=== PATIENT | female | born 1940 | race Caucasian/White ===

== ENCOUNTER 2019-04-05 13:07 | Inpatient (IN) ==
[2019-04-05 14:07] LABS: Bilirubin,Urine Small (Negative); Blood,Urine Negative (Negative); Clarity,Urine Clear (Clear); Color,Urine Yellow (Yellow); Glucose,Urine (UA) Normal (Normal); Ketones,Urine Trace mg/dL (Negative); Leukocyte Esterase,Urine Moderate (Negative); Nitrite,Urine Negative (Negative); PH,Urine 6.5 pH Units (5.0-8.0); Protein,Urine 30 mg/dL (Neg-Trace); Specific Gravity,Urine 1.026 (1.010-1.025); Urobilinogen,Urine Normal (Normal)
[2019-04-05 14:09] LABS: Bacteria,Urine Few per hpf (None-Few); Hyaline Casts,Urine None Seen per lpf (None-Few); Squamous Epithelial Cell,Urine Many per lpf (None-Few)
[2019-04-05 14:12] LABS: Amphetamine Screen,Urine Negative ng/mL (Cutoff=1000); Barbiturate Screen,Urine Negative ng/mL (Cutoff=200); Benzodiazepines Screen,Urine Negative ng/mL (Cutoff=200); Cannabinoid Screen,Urine Negative ng/mL (Cutoff = 50); Cocaine Screen,Urine Negative ng/mL (Cutoff= 300); Opiate Screen,Urine Negative ng/mL (Cutoff=300); Phencyclidine Screen,Urine Negative ng/mL (Cutoff=25)
--- NOTE | 2019-04-05 14:12 | Emergency Department Note ---
Disposition Clinical Impression: Delirium, Visual hallucinations, Atrial fibrillation with RVR Disposition: Admitted As Inpatient Condition: Good Referrals: Maritza uQintana, [employer] OPERATOR [Primary Care Provider] - Forms: ED Satisfaction Letter Time of Disposition: 16:36 General Adult HPI - General Chief complaint: ED Psychiatric Symptoms Stated complaint: Hallucinations Time Seen by Provider: 04/05/19 13:15 Source: patient Limitations: no limitations Nursing Notes Reviewed: Yes Vital Signs Reviewed: Yes - History of Present Illness HPI Narrative: Female patient visiting to the emergency department complaining of hallucinations. She does have history of Parkinson's. There is been no change in her medication. She also is reporting several falls at home. She denies any falling to strike her head she is just been falling into things recently. She denies any loss of consciousness. She states that she has been seeing people in the field by her house. She asked her nephew they were actually there and he said they were not. She is aware that they are not real. Concern for possible UTI this time. Denies any shortness of breath or chest pain is out of the ordinary she did however fall and struck her chest she states that she had a small area that was sore but is not present at this time. Patient does report some dysuria. She reports that recently she had a fall onto the counter and she had bilateral biceps soreness which was treat with meloxicam. That did not make it better so then she was treated with steroids. The steroid course was over s everal days ago. She states that the pain is gone at this time. Pain Scale: 0 - Related Data Home Medications Medication Instructions Recorded Confirmed Carbidopa/Levodopa ER 50/200 1 tab PO HS 09/15/17 09/15/17 [Sinemet ER 50-200 Tab] Pramipexole [Mirapex] 0.5 mg PO BID 09/15/17 09/15/17 Rivastigmine Tartrate (oral) 1.5 mg PO BID 04/05/19 04/05/19 [Exelon] Selegiline HCl [Eldepryl] 5 mg PO BID 04/05/19 04/05/19 Sertraline [Zoloft] 50 mg PO DAILY 04/05/19 04/05/19 clonazePAM [Klonopin] 0.5 mg PO PRN PRN 04/05/19 04/05/19 Previous Rx's Medication Instructions Recorded Aspirin 81 mg PO DAILY #30 tab.chew 09/16/17 Allergies Allergy/AdvReac Type Severity Reaction Status Date / Time nitrofurantoin Allergy Rash Verified 08/28/18 14:46 All systems ED: reviewed and negative except as stated. Review of Systems: As Per HPI Constitutional: Denies: fever, chills Cardiovascular: Reports: chest pain (small area to sternum that she states is sore. Not having pain at this time.) Respiratory: Denies: cough, dyspnea Gastrointestinal: Denies: abdominal pain, nausea, vomiting, diarrhea Genitourinary: Reports: dysuria. Denies: urgency, frequency, hematuria Musculoskeletal: Denies: back pain, neck pain Integumentary: Denies: rash Neurological: Reports: other (has a " squishy feeling" in her head). Denies: headache Psychiatric: Reports: visual hallucinations. Denies: suicidal thoughts, homicidal thoughts, auditory hallucinations Past Medical History - Past Medical History Attestation: Yes The following information was validated with the patient. Source: patient Medical history: Reports: other Psychiatric history: Reports: no psych history - Social History Smoking Status: Never smoker Smokeless Tobacco Status: No Alcohol use: Reports: none Drug use: Reports: none Physical Exam - General Limitations: no limitations General appearance: alert, in no apparent distress - Head Head exam: atraumatic, normocephalic, normal inspection - Eye Eye exam: Present: normal appearance, PERRL, EOMI - ENT ENT exam: normal exam, normal oropharynx, mucous membranes moist - Neck Neck exam: Present: normal inspection, full ROM, trachea midline - Chest Chest inspection: Present: normal inspection, symmetric chest wall rise. Absent: tenderness (no tenderness to palpation of chest. No signs of trauma or ecchymosis to chest wall) - Respiratory Respiratory exam: Present: normal lung sounds bilaterally. Absent: respiratory distress, accessory muscle use - Cardiovascular Cardiovascular exam: Present: regular rate, normal rhythm, normal heart sounds - Abdominal Exam Abdominal exam: Present: soft, Non-Tender. Absent: tenderness, distention, guarding, rebound, rigidity, organomegaly, Bustillo's sign, Rovsing's sign, tenderness at McBurney's Point - Extremities Exam Extremities exam: Present: normal inspection, full ROM, normal capillary refill, other (No pain to palpation of all 4 extremities. Gross motor intact. Weakness in the lower extremities however. She is able to stand but is weak on her feet.). Absent: tenderness, pedal edema - Back Exam Back exam: Present: normal inspection, full ROM, other (No step-offs deformities or pain to palpation of midline cervical thoracic or lumbar spine.). Absent: tenderness - Neurological Exam Neurological exam: Present: alert, oriented X3, CN II-XII intact - Psychiatric Psychiatric exam: Present: normal affect, normal mood. Absent: homicidal ideation, suicidal ideation - Skin Skin exam: Present: warm, dry, intact, normal color. Absent: rash, cyanosis, diaphoresis Course Course Narrative: Female patient appears well resting in bed. No signs of trauma noted to her body. Sternum is not tender to palpation. She states that she is not short of breath currently. She does report that she did have some pain to palpation of her sternum previously but is surprised that is not hurting at this time. She denies any overt chest pain however. She states that she is not having hallucinations at this time. She does report that she knows that they were not there but she could still see the people outside. Complains of some mild burning on urination. We will get a CT of her hepatic basic lab workup and a UA. Patient does have Parkinson's. I do not notice a tremor at this time. There is no cogwheel rigidity. - Reevaluation(s) Reevaluation #1: Alerted by nursing staff that the patient is now in A. fib. She is A. fib RVR at a rate of 160s. We will provide patient with a liter of fluid and will give her 10 mg of Cardizem at this time. Patient is mentating appropriately with a stable blood pressure. No history of A. fib. Patient with a stable head CT so we will provide her with aspirin at this time. We will start patient on a Cardizem drip that she did not respond to the initial Cardizem bolus and fluid challenge. Time: 16:09 Vital Signs Temperature 98.1 F 04/05/19 13:09 Pulse Rate 91 04/05/19 13:09 Respiratory Rate 16 04/05/19 13:09 Blood Pressure 113/56 04/05/19 13:09 O2 Sat by Pulse Oximetry 94 04/05/19 13:09 Temperature 98.1 F 04/05/19 13:09 Pulse Rate 121 04/05/19 16:29 Respiratory Rate 20 04/05/19 16:29 Blood Pressure 178/82 04/05/19 16:00 O2 Sat by Pulse Oximetry 95 04/05/19 16:29 Oxygen Delivery Oxygen Delivery Room Air Medical Decision Making - Medical Records Medical records reviewed: Yes I reviewed the patient's medical records. - Lab Data Lab results reviewed: Yes I reviewed the patient's lab results. Result diagrams: 04/05/19 13:55 04/05/19 13:55 Lab Results 04/05/19 04/05/19 04/05/19 Range/Units 13:45 13:45 13:55 WBC 11.3 H (4.3-11.1) K/mcL RBC 4.10 (3.82-4.97) M/mcL Hgb 12.8 (11.5-15.4) g/dL Hct 38.9 (35.3-44.9) % MCV 94.9 (83.0-100.0) fL MCH 31.2 (28.0-33.3) pg MCHC 32.9 (31.6-35.5) g/dL RDW 13.3 (11.5-14.5) % Plt Count 266 (140-400) K/mcL MPV 9.4 (9.4-12.4) fL Immature Gran % 0.4 (0-4) % Seg Neutrophils % 75.9 % Lymphocytes % 14.7 % Monocytes % 6.1 % Eosinophils % 2.6 % Basophils % 0.3 % Neutrophils # 8.6 (1.6-8.9) K/mcL Lymphocytes # 1.7 (0.6-4.6) K/mcL Monocytes # 0.7 (0.0-1.3) K/mcL Eosinophils # 0.3 (0.0-0.6) K/mcL Basophils # 0.0 (0.0-0.2) K/mcL Sodium (136-145) mEq/L Potassium (3.5-5.1) mEq/L Chloride (98-107) mEq/L Carbon Dioxide (23-29) mEq/L BUN (8-23) mg/dL Creatinine (0.60-1.20) mg/dL Est GFR ( Amer) (> 60) Est GFR (Non-Af Amer) (> 60) BUN/Creatinine Ratio (6-26) Glucose (70-105) mg/dL Calculated Osmolality (280-300) Calcium (8.6-10.3) mg/dL Total Bilirubin (0.3-1.0) mg/dL Direct Bilirubin (0.0-0.2) mg/dL Indirect Bilirubin (0.0-1.2) mg/dL AST (13-39) Units/L ALT (7-52) Units/L Alkaline Phosphatase (34-104) Units/L Troponin I (< 0.04) ng/mL Serum Total Protein (6.4-8.9) g/dL Albumin (3.5-5.7) g/dL Globulin (2.4-3.5) g/dL Albumin/Globulin Ratio (1.1-2.2) Ur Specimen Adequacy See below A Urine Color Yellow (Yellow) Urine Clarity Clear (Clear) Urine pH 6.5 (5.0-8.0) pH Units Ur Specific [place] 1.026 H (1.010-1.025) Urine Protein 30 H (Neg-Trace) mg/dL Urine Glucose (UA) Normal (Normal) mg/dL Urine Ketones Trace H (Negative) mg/dL Urine Blood Negative (Negative) Urine Nitrite Negative (Negative) Urine Bilirubin Small H (Negative) Urine Urobilinogen Normal (Normal) mg/dL Ur Leukocyte Esterase Moderate H (Negative) Urine Microscopic WBC 5-15 H (0-3) per hpf Ur Squamous Epith Cells Many H (None-Few) per lpf Ur Transition Epith Cell Few (None-Few) per hpf Urine Bacteria Few (None-Few) per hpf Hyaline Casts None Seen (None-Few) per lpf Salicylates (15.0-30.0) mg/dL Urine Opiates Screen Negative (Byftmc=392) ng/mL Acetaminophen (10-20) mcg/mL Ur Barbiturates Screen Negative (Fcdmmg=256) ng/mL Ur Phencyclidine Scrn Negative (Cutoff=25) ng/mL Ur Amphetamines Screen Negative (Mnbdqe=3446) ng/mL U Benzodiazepines Scrn Negative (Xzbtvb=911) ng/mL Urine Cocaine Screen Negative (Cutoff= 300) ng/mL U Marijuana (THC) Screen Negative (Cutoff = 50) ng/mL Ur Drug Screen Interp See Below Ethyl Alcohol (Less than 10) mg/dL 04/05/19 04/05/19 Range/Units 13:55 13:55 WBC (4.3-11.1) K/mcL RBC (3.82-4.97) M/mcL Hgb (11.5-15.4) g/dL Hct (35.3-44.9) % MCV (83.0-100.0) fL MCH (28.0-33.3) pg MCHC (31.6-35.5) g/dL RDW (11.5-14.5) % Plt Count (140-400) K/mcL MPV (9.4-12.4) fL Immature Gran % (0-4) % Seg Neutrophils % % Lymphocytes % % Monocytes % % Eosinophils % % Basophils % % Neutrophils # (1.6-8.9) K/mcL Lymphocytes # (0.6-4.6) K/mcL Monocytes # (0.0-1.3) K/mcL Eosinophils # (0.0-0.6) K/mcL Basophils # (0.0-0.2) K/mcL Sodium 138 (136-145) mEq/L Potassium 3.7 (3.5-5.1) mEq/L Chloride 100 (98-107) mEq/L Carbon Dioxide 28 (23-29) mEq/L BUN 14 (8-23) mg/dL Creatinine 0.89 (0.60-1.20) mg/dL Est GFR ( Amer) > 60 (> 60) Est GFR (Non-Af Amer) > 60 (> 60) BUN/Creatinine Ratio 16 (6-26) Glucose 104 (70-105) mg/dL Calculated Osmolality 287 (280-300) Calcium 9.4 (8.6-10.3) mg/dL Total Bilirubin 0.7 (0.3-1.0) mg/dL Direct Bilirubin 0.1 (0.0-0.2) mg/dL Indirect Bilirubin 0.6 (0.0-1.2) mg/dL AST 13 (13-39) Units/L ALT 3 L (7-52) Units/L Alkaline Phosphatase 79 (34-104) Units/L Troponin I 0.03 (< 0.04) ng/mL Serum Total Protein 6.8 (6.4-8.9) g/dL Albumin 4.0 (3.5-5.7) g/dL Globulin 2.8 (2.4-3.5) g/dL Albumin/Globulin Ratio 1.4 (1.1-2.2) Ur Specimen Adequacy Urine Color (Yellow) Urine Clarity (Clear) Urine pH (5.0-8.0) pH Units Ur Specific [place] (1.010-1.025) Urine Protein (Neg-Trace) mg/dL Urine Glucose (UA) (Normal) mg/dL Urine Ketones (Negative) mg/dL Urine Blood (Negative) Urine Nitrite (Negative) Urine Bilirubin (Negative) Urine Urobilinogen (Normal) mg/dL Ur Leukocyte Esterase (Negative) Urine Microscopic WBC (0-3) per hpf Ur Squamous Epith Cells (None-Few) per lpf Ur Transition Epith Cell (None-Few) per hpf Urine Bacteria (None-Few) per hpf Hyaline Casts (None-Few) per lpf Salicylates < 2.5 L (15.0-30.0) mg/dL Urine Opiates Screen (Gxwrhj=938) ng/mL Acetaminophen < 10 L (10-20) mcg/mL Ur Barbiturates Screen (Rkxqbe=025) ng/mL Ur Phencyclidine Scrn (Cutoff=25) ng/mL Ur Amphetamines Screen (Gvbynn=5132) ng/mL U Benzodiazepines Scrn (Rvllah=261) ng/mL Urine Cocaine Screen (Cutoff= 300) ng/mL U Marijuana (THC) Screen (Cutoff = 50) ng/mL Ur Drug Screen Interp Ethyl Alcohol < 10 (Less than 10) mg/dL - Radiology Data Radiology results reviewed: Yes I reviewed the patient's radiology results. Chest X-Ray 04/05/19 13:41 IMPRESSION: 1. Congestive heart failure 2. Hiatal hernia D/ / Tae Sanchez MD / Tae Sanchez MD Interpreting Provider: Tae Sanchez MD Head CT 04/05/19 13:41 IMPRESSION: No acute intracranial abnormality. D/ / Tyesha Rivera / Tyesha Rivera Interpreting Provider: Tyesha Rivera - EKG Data EKG #1 EKG attestation: Yes I reviewed and interpreted this EKG. EKG results narrative: Normal sinus rhythm at a rate 82. AZ intervals 171. QRS duration is 85. QT is 357. QTC is 417. No signs of acute ischemia. Good R-wave progression. No signs of WPW or Brugada. No significant change from previous EKG dated 09/14/2017. EKG #2 EKG attestation: Yes I reviewed and interpreted this EKG. EKG results narrative: EKG 1556 is now A. fib with RVR. Ventricular rate of 157. AZ interval was not measured QRS duration is 85. QT is 3-91. QTC is 471. Patient was previously in a sinus rhythm. This is a new finding for the patient.
[2019-04-05 14:24] LABS: Basophils % 0.3 %; Eosinophils # 0.3 K/mcL (0.0-0.6); Eosinophils % 2.6 %; Hematocrit 38.9 % (35.3-44.9); Hemoglobin 12.8 g/dL (11.5-15.4); Immature Granulocytes % 0.4 % (0-4); Lymphocytes # 1.7 K/mcL (0.6-4.6); Lymphocytes % 14.7 %; Mean Corpuscular HGB Conc 32.9 g/dL (31.6-35.5); Mean Corpuscular Hemoglobin 31.2 pg (28.0-33.3); Mean Corpuscular Volume 94.9 fL (83.0-100.0); Mean Platelet Volume 9.4 fL (9.4-12.4); Monocytes # 0.7 K/mcL (0.0-1.3); Monocytes % 6.1 %; Neutrophils # 8.6 K/mcL (1.6-8.9); Platelet Count 266 K/mcL (140-400); Red Cell Distribution Width 13.3 % (11.5-14.5); Segmented Neutrophils % 75.9 %; White Blood Count 11.3 K/mcL (4.3-11.1)
[2019-04-05 14:27] LABS: Transitional Epi Cells,Urine Few per hpf (None-Few)
--- NOTE | 2019-04-05 14:34 | Emergency Department Note ---
Disposition Clinical Impression: Delirium, Visual hallucinations Disposition: Admitted As Inpatient Forms: ED Satisfaction Letter Time of Disposition: 14:38 General Adult HPI - General Chief complaint: ED Psychiatric Symptoms Stated complaint: Hallucinations Time Seen by Provider: 04/05/19 13:15 Source: patient Limitations: no limitations Nursing Notes Reviewed: Yes Vital Signs Reviewed: Yes - History of Present Illness HPI Narrative: Attestation note: Patient was seen with the emergency medicine resident/nurse practitioner/physician virtual office assistant/transitional resident/medical student: Dr. Smita Mcintosh I have personally performed a face to face evaluation on this patient. I have reviewed and agree with history and physical examination patient management and disposition. I was present for the significant portions of the performance and interpretation of procedures and EKGs. Briefly the salient points of the case are as follows: 79-year-old female from a senior living facility. Patient is having visual hallucinations which is new and different they are not threatening or commanding. Patient is otherwise awake alert and responsive. No new medication changes afebrile with stable vital signs patient be worked up for delirium. Anticipated disposition is admission. Disposition pending. Pain Scale: 0 - Related Data Home Medications Medication Instructions Recorded Confirmed Calcium Carb, Citrate/Vit D3 1 tab PO DAILY 09/15/17 09/15/17 [Calcium + D3 ER Tablet] Carbidopa/Levodopa 25/100 [Sinemet 2 each PO QID 09/15/17 09/15/17 25/100] Carbidopa/Levodopa ER 50/200 1 tab PO HS 09/15/17 09/15/17 [Sinemet ER 50-200 Tab] Cholecalciferol (D-3) [Vitamin D] 2,000 unit PO DAILY 09/15/17 09/15/17 Entacapone [Comtan] 200 mg PO QID 09/15/17 09/15/17 Ketoconazole 2% CRM [Nizoral Cream] 1 appl TP DAILY 09/15/17 09/15/17 Lisinopril-HCTZ 10-12.5 [Prinzide 1 each PO DAILY 09/15/17 09/15/17 10-12.5] Omega3/Dha/Epa/Fish Oil/Vit D3 1 each PO DAILY 09/15/17 09/15/17 [Fish Oil + Vitamin D-3 Softgel] Pramipexole [Mirapex] 0.5 mg PO BID 09/15/17 09/15/17 Rasagiline Mesylate [Azilect] 1 mg PO DAILY 09/15/17 09/15/17 Previous Rx's Medication Instructions Recorded Aspirin 81 mg PO DAILY #30 tab.chew 09/16/17 Omeprazole [PriLOSEC] 40 mg PO DAILY #30 cap 09/16/17 Cephalexin [Keflex] 500 mg PO TID #21 capsule 08/28/18 Phenazopyridine HCl [Pyridium] 200 mg PO TID #6 tab 08/28/18 Allergies Allergy/AdvReac Type Severity Reaction Status Date / Time nitrofurantoin Allergy Rash Verified 08/28/18 14:46 Constitutional: Denies: fever, chills Cardiovascular: Reports: chest pain (small area to sternum that she states is sore. Not having pain at this time.) Respiratory: Denies: cough, dyspnea Gastrointestinal: Denies: abdominal pain, nausea, vomiting, diarrhea Genitourinary: Reports: dysuria. Denies: urgency, frequency, hematuria Musculoskeletal: Denies: back pain, neck pain Integumentary: Denies: rash Neurological: Reports: other (has a " squishy feeling" in her head). Denies: headache Psychiatric: Reports: visual hallucinations. Denies: suicidal thoughts, homic idal thoughts, auditory hallucinations Past Medical History - Past Medical History Medical history: Reports: other Psychiatric history: Reports: no psych history - Social History Smoking Status: Never smoker Smokeless Tobacco Status: No Alcohol use: Reports: none Drug use: Reports: none Physical Exam - General Limitations: no limitations General appearance: alert, in no apparent distress Course Vital Signs Temperature 98.1 F 04/05/19 13:09 Pulse Rate 91 04/05/19 13:09 Respiratory Rate 16 04/05/19 13:09 Blood Pressure 113/56 04/05/19 13:09 O2 Sat by Pulse Oximetry 94 04/05/19 13:09 Temperature 98.1 F 04/05/19 13:09 Pulse Rate 91 04/05/19 13:09 Respiratory Rate 16 04/05/19 13:09 Blood Pressure 113/56 04/05/19 13:09 O2 Sat by Pulse Oximetry 94 04/05/19 13:09 Oxygen Delivery Oxygen Delivery Room Air Medical Decision Making - Lab Data Result diagrams: 04/05/19 13:55 Lab Results 04/05/19 04/05/19 04/05/19 Range/Units 13:45 13:45 13:55 WBC 11.3 H (4.3-11.1) K/mcL RBC 4.10 (3.82-4.97) M/mcL Hgb 12.8 (11.5-15.4) g/dL Hct 38.9 (35.3-44.9) % MCV 94.9 (83.0-100.0) fL MCH 31.2 (28.0-33.3) pg MCHC 32.9 (31.6-35.5) g/dL RDW 13.3 (11.5-14.5) % Plt Count 266 (140-400) K/mcL MPV 9.4 (9.4-12.4) fL Immature Gran % 0.4 (0-4) % Seg Neutrophils % 75.9 % Lymphocytes % 14.7 % Monocytes % 6.1 % Eosinophils % 2.6 % Basophils % 0.3 % Neutrophils # 8.6 (1.6-8.9) K/mcL Lymphocytes # 1.7 (0.6-4.6) K/mcL Monocytes # 0.7 (0.0-1.3) K/mcL Eosinophils # 0.3 (0.0-0.6) K/mcL Basophils # 0.0 (0.0-0.2) K/mcL Urine Color Yellow (Yellow) Urine Clarity Clear (Clear) Urine pH 6.5 (5.0-8.0) pH Units Ur Specific [place] 1.026 H (1.010-1.025) Urine Protein 30 H (Neg-Trace) mg/dL Urine Glucose (UA) Normal (Normal) mg/dL Urine Ketones Trace H (Negative) mg/dL Urine Blood Negative (Negative) Urine Nitrite Negative (Negative) Urine Bilirubin Small H (Negative) Urine Urobilinogen Normal (Normal) mg/dL Ur Leukocyte Esterase Moderate H (Negative) Urine Microscopic WBC 5-15 H (0-3) per hpf Ur Squamous Epith Cells Many H (None-Few) per lpf Ur Transition Epith Cell Few (None-Few) per hpf Urine Bacteria Few (None-Few) per hpf Hyaline Casts None Seen (None-Few) per lpf Urine Opiates Screen Negative (Aohcdy=195) ng/mL Ur Barbiturates Screen Negative (Jtpuog=599) ng/mL Ur Phencyclidine Scrn Negative (Cutoff=25) ng/mL Ur Amphetamines Screen Negative (Watiuu=6717) ng/mL U Benzodiazepines Scrn Negative (Jpzrwh=902) ng/mL Urine Cocaine Screen Negative (Cutoff= 300) ng/mL U Marijuana (THC) Screen Negative (Cutoff = 50) ng/mL Ur Drug Screen Interp See Below
[2019-04-05 14:41] LABS: Acetaminophen < 10 mcg/mL (10-20); BUN/Creatinine Ratio 16 (6-26); Blood Urea Nitrogen 14 mg/dL (8-23); Calcium 9.4 mg/dL (8.6-10.3); Carbon Dioxide 28 mEq/L (23-29); Chloride 100 mEq/L (98-107); Ethanol < 10 mg/dL (Less than 10); Glucose 104 mg/dL (70-105); Osmolality,Calculated 287 (280-300); Potassium 3.7 mEq/L (3.5-5.1); Salicylate < 2.5 mg/dL (15.0-30.0); Sodium 138 mEq/L (136-145); eGFR For African Americans > 60 (> 60); eGFR For Non-African Americans > 60 (> 60)
[2019-04-05 14:42] LABS: Albumin/Globulin Ratio 1.4 (1.1-2.2); Bilirubin,Direct 0.1 mg/dL (0.0-0.2); Bilirubin,Indirect 0.6 mg/dL (0.0-1.2); Bilirubin,Total 0.7 mg/dL (0.3-1.0); Globulin 2.8 g/dL (2.4-3.5); Total Protein 6.8 g/dL (6.4-8.9); Troponin I 0.03 ng/mL (< 0.04)
[2019-04-05] MEDS ORDERED: 0.9 % Sodium Chloride 1,000 ML ONE (16:00)
[2019-04-05] MEDS ORDERED: 0.9 % Sodium Chloride 1,000 ML IVC ONE (16:02)
[2019-04-05] MEDS ORDERED: Aspirin 325 MG TABLET PO ONE (16:06)
[2019-04-05 17:17] LABS: Troponin I 0.03 ng/mL (< 0.04)
[2019-04-05] MEDS ORDERED: Furosemide 40 MG/4 ML VIAL IVP STA (17:20)
[2019-04-05] MEDS ORDERED: Nitroglycerin 0.4 MG TAB.SUBL SL PRN (17:20)
[2019-04-05] MEDS ORDERED: Naloxone 0.4 MG/ML INJ IVP PRN (17:23)
[2019-04-05] MEDS ORDERED: clonazePAM 0.5 MG TABLET PO PRN (17:31)
--- NOTE | 2019-04-05 17:39 | Internal Med History&Physical ---
Date of Encounter: 04/05/19 Time of Encounter: 17:34 Internal Medicine - H&P: HPI History of present illness: Ms. Tavera is a 79 year old female with history of Parkinson's Disease presented to ED for visual hallucinations. Onset was one day ago. Patient is aware these are hallucinations. She denies any auditory hallucinations, SI/HI, depression, anxiety. She is on several medications for Parkinson's disease but has never had this side effect from them. In the ED she had basic workup with basic labs negative as well as a negative CT scan. She was noted to have tachycardic episode on telemetry and went into afib with RVR. She was started on a Cardizem drip. O2 saturations at bedside was 90-91% on room air. Past Med Surg Social Fam HX - Past Medical History Medical history: other Additional medical history: parkinson's Psychiatric history: no psych history - Social History Smoking Status: Never smoker Smokeless Tobacco Status: No Alcohol use: none Drug use: none - Family History Father Living Status: Hx Family Cardiac Disorders: Yes Internal Medicine - H&P: Meds Carbidopa/Levodopa ER 50/200 [Sinemet ER 50-200 Tab] 3 tab PO QID 09/15/17 [History] Pramipexole [Mirapex] 0.5 mg PO TID 09/15/17 [History] Aspirin 81 mg PO DAILY #30 tab.chew 09/16/17 [Rx] Rivastigmine Tartrate (oral) [Exelon] 1.5 mg PO BID 04/05/19 [History] Selegiline HCl [Eldepryl] 5 mg PO BID 04/05/19 [History] Sertraline [Zoloft] 50 mg PO DAILY 04/05/19 [History] clonazePAM [Klonopin] 0.5 mg PO PRN PRN 04/05/19 [History] Allergy/AdvReac Type Severity Reaction Status Date / Time nitrofurantoin Allergy Rash Verified 08/28/18 14:46 All Systems PM: A 10-system review of systems was performed and is negative for pertinent findings except as documented above in the HPI. - Constitutional Constitutional: no chills, no fever(s), no night sweats - EENT Eyes: no change in vision, no discharge, no pain, no photophobia Ears: no ear discharge, no ear pain, no tinnitus Nose, mouth and throat: no dysphagia, no nasal discharge, no neck pain, no sore throat - Cardiovascular Cardiovascular ROS IM: no chest pain, no diaphoresis, no dyspnea, no lightheadedness, no palpitations, no syncope - Respiratory Respiratory: no cough, no dyspnea (occasional ), no wheezing, no excessive phlegm production - Gastrointestinal Gastrointestinal: no abdominal pain, no diarrhea, no hematemesis, no hematochezia, no melena, no nausea, no vomiting - Genitourinary Genitourinary: no change in urinary stream, no dysuria, no flank pain, no hematuria - Musculoskeletal Musculoskeletal ROS IM: no numbness, no tingling - Integumentary Integumentary IM: no rash, no unusual bruising - Neurological Neurological ROS: no confusion, no convulsions, no focal weakness, no numbness, no tingling, no tremor(s) - Psychiatric Psychiatric: visual hallucinations - Hematologic/Lymphatic Hematologic/Lymphatic: no easy bruising - Constitutional Vitals: Temp Pulse Resp BP Pulse Ox 98.1 F 146 16 114/86 99 04/05/19 13:09 04/05/19 17:23 04/05/19 17:23 04/05/19 17:23 04/05/19 17:23 General appearance: Present: A&O X 3, pleasant Exam: . - Head Head exam: Present: atraumatic, normocephalic - Eye Eye exam: Present: PERRL, conjuntiva pink, sclera anicteric Pupils: Present: PERRL - ENT ENT exam: Present: mucous membranes dry - Neck Neck exam general surgery: Present: full ROM, supple, trachea midline. Absent: lymphadenopathy, thyromegaly - Respiratory Respiratory exam: Present: rales (Coarse throughout all lung anne). Absent: accessory muscle use, rhonchi, wheezes - Cardiovascular Cardiovascular exam: Present: +S1, +S2, tachycardia. Absent: diastolic murmur, gallop, rubs, systolic murmur - GI/Abdominal GI/Abdominal exam: Present: normal bowel sounds, soft, no peritoneal signs. Absent: distended, tenderness - Extremities Exam Extremities exam: Present: warm, radial pulses palpable and symmetrical. Absent: calf tenderness, cyanotic, pedal edema - Neurological Exam Neurological exam: Present: CN II-XII intact, oriented X3, no focal deficits. Absent: pronater drift, facial droop, speech deficit - Skin Skin exam: Present: dry, intact Internal Med - H&P Results - Labs CBC & Chem 7: 04/05/19 13:55 04/05/19 13:55 Labs: Short CBC 04/05/19 Range/Units 13:55 WBC 11.3 H (4.3-11.1) K/mcL Hgb 12.8 (11.5-15.4) g/dL Hct 38.9 (35.3-44.9) % Plt Count 266 (140-400) K/mcL Neutrophils # 8.6 (1.6-8.9) K/mcL BMP 04/05/19 13:55 Sodium 138 Potassium 3.7 Chloride 100 Carbon Dioxide 28 BUN 14 Creatinine 0.89 Glucose 104 Calcium 9.4 Cardiac Enzymes 04/05/19 04/05/19 Range/Units 13:55 16:30 Troponin I 0.03 0.03 (< 0.04) ng/mL Liver Function 04/05/19 Range/Units 13:55 Total Bilirubin 0.7 (0.3-1.0) mg/dL Direct Bilirubin 0.1 (0.0-0.2) mg/dL AST 13 (13-39) Units/L ALT 3 L (7-52) Units/L Alkaline Phosphatase 79 (34-104) Units/L Albumin 4.0 (3.5-5.7) g/dL Urine 04/05/19 Range/Units 13:45 Urine Color Yellow (Yellow) Urine Clarity Clear (Clear) Urine pH 6.5 (5.0-8.0) pH Units Ur Specific [place] 1.026 H (1.010-1.025) Urine Protein 30 H (Neg-Trace) mg/dL Urine Glucose (UA) Normal (Normal) mg/dL - Impressions ITS Impressions Chest X-Ray 04/05/19 13:41 IMPRESSION: 1. Congestive heart failure 2. Hiatal hernia D/ / Tae Sanchez MD / Tae Sanchez MD Interpreting Provider: Tae Sanchez MD Head CT 04/05/19 13:41 IMPRESSION: No acute intracranial abnormality. D/ / Tyesha Rivera / Tyesha Rivera Interpreting Provider: Tyesha Rivera - Assessment and Plan (1) Visual hallucinations Current Visit: Yes Status: Acute Assessment and plan: She presented with the [facility] complaint of visual hallucinations. She is alert and oriented, and aware of her situation. She does not appear confused or combative and she is completely conscious. This is likely related to Parkinson's disease, and medication side effects. All of which can cause hallucinations. These medications should not be abruptly withdrawn and so should carefully be resumed. (2) Atrial fibrillation with RVR Current Visit: Yes Status: Acute Assessment and plan: Patient seen to go into afib with RVR on telemetry in the ED. She was initially sinus rhythm on first EKG. She denies any chest pain, and states she has occasionally SOB and palpitations. In the ED Cardizem bolus and drip were started. Could be related to acute CHF vs other. - Continue Cardizem drip - Consult Cardiology - TSH (3) Acute decompensated heart failure Current Visit: Yes Status: Acute Assessment and plan: No known history of heart failure or fluid overload. Chest x-ray showed pulmonary edema and she exhibited coarse rales on exam. However her mucus membranes do appear dry, and she does not appear to have any peripheral edema either. She attributes dry mucus membranes to her home medications. A stress echo two years ago was negative for ischemia and rated EF as >70%. A resting echo showed normal LV chamber with mild LV diastolic dysfunction. Plan: - Fluid restriction diet - Measure I/Os, daily weights - 2D echo - BNP - TSH - Lasix 20 mg IV BID with caution as patient is on a Cardizem drip. - Cardiology consultation. (4) Parkinson disease Current Visit: Yes Status: Acute Assessment and plan: Resume home medications. (5) GERD (gastroesophageal reflux disease) Current Visit: No Status: Acute Qualifiers: Esophagitis presence: esophagitis presence not specified Qualified Code(s): K21.9 - Gastro-esophageal reflux disease without esophagitis - Time Spent With Patient Total time spent is greater than 50% in coordination of care (as documented) at patient's floor/unit and/or counseling patient:
[2019-04-05] MEDS ORDERED: *HR* Heparin 5,000 UNIT/ML VIAL IVP PRN ×2 (18:11)
[2019-04-05] MEDS ORDERED: *HR* Heparin 5,000 UNIT/ML VIAL IVP ONE (18:11)
[2019-04-05 20:54] LABS: Magnesium 1.8 mg/dL (1.6-2.6)
[2019-04-05] MEDS ORDERED: Furosemide 40 MG/4 ML VIAL IVP SCH (21:00)
[2019-04-05 21:06] LABS: Thyroid Stimulating Hormone 0.734 mcIU/mL (0.340-5.600)
[2019-04-05] MEDS: Carbidopa/Levodopa ER 50/200 TABLET PO SCH (22:52)
[2019-04-05 22:59] LABS: Hematocrit 35.5 % (35.3-44.9); Hemoglobin 11.6 g/dL (11.5-15.4); Mean Corpuscular HGB Conc 32.7 g/dL (31.6-35.5); Mean Corpuscular Hemoglobin 31.4 pg (28.0-33.3); Mean Corpuscular Volume 96.2 fL (83.0-100.0); Mean Platelet Volume 9.2 fL (9.4-12.4); Platelet Count 222 K/mcL (140-400); Red Blood Count 3.69 M/mcL (3.82-4.97); Red Cell Distribution Width 13.2 % (11.5-14.5); White Blood Count 9.4 K/mcL (4.3-11.1)
[2019-04-05 23:07] LABS: Prothrombin Time 11.7 Seconds (9.4-12.1)
[2019-04-05] MEDS: Rivastigmine Tartrate (oral) 1.5 MG CAPSULE PO SCH (23:13)
[2019-04-05] MEDS: Heparin 25,000 UNIT/250 ML D5W 25,000 UNIT/250 ML IV.SOLN IVC SCH (23:56)
--- NOTE | 2019-04-06 06:17 | Event Note ---
Date of Encounter: 04/06/19 Time of Encounter: 03:36 Notified by nurse of patient having increase in abnormal jerking body and eye movements following receiving Klonopin. Vitals and blood sugar stable. Went to assess patient at bedside, and abnormal jerking movements had improved prior to my arrival. Patient still would intermittently look up at the ceiling but was able to focus appropriately on objects. Remains fully alert and oriented, no neurological deficits noted. Continues to deny any hallucinations since arrival. Will place Klonopin on hold and order morning labs. Nurse to monitor closely and notify of any changes.
[2019-04-06 06:24] LABS: Basophils % 0.2 %; Eosinophils # 0.5 K/mcL (0.0-0.6); Eosinophils % 3.9 %; Hematocrit 39.4 % (35.3-44.9); Hemoglobin 12.7 g/dL (11.5-15.4); Immature Granulocytes % 0.5 % (0-4); Lymphocytes # 1.4 K/mcL (0.6-4.6); Lymphocytes % 11.9 %; Mean Corpuscular HGB Conc 32.2 g/dL (31.6-35.5); Mean Corpuscular Hemoglobin 31.1 pg (28.0-33.3); Mean Corpuscular Volume 96.3 fL (83.0-100.0); Mean Platelet Volume 9.1 fL (9.4-12.4); Monocytes # 0.6 K/mcL (0.0-1.3); Monocytes % 5.1 %; Neutrophils # 9.1 K/mcL (1.6-8.9); Platelet Count 247 K/mcL (140-400); Red Blood Count 4.09 M/mcL (3.82-4.97); Red Cell Distribution Width 13.2 % (11.5-14.5); Segmented Neutrophils % 78.4 %; White Blood Count 11.6 K/mcL (4.3-11.1)
[2019-04-06 07:00] LABS: Alanine Aminotransferase 3 Units/L (7-52); Albumin 3.8 g/dL (3.5-5.7); Albumin/Globulin Ratio 1.5 (1.1-2.2); Alkaline Phosphatase 72 Units/L (34-104); Aspartate Amino Transferase 11 Units/L (13-39); BUN/Creatinine Ratio 23 (6-26); Bilirubin,Total 0.6 mg/dL (0.3-1.0); Blood Urea Nitrogen 14 mg/dL (8-23); Calcium 9.3 mg/dL (8.6-10.3); Carbon Dioxide 32 mEq/L (23-29); Chloride 97 mEq/L (98-107); Globulin 2.6 g/dL (2.4-3.5); Glucose 111 mg/dL (70-105); Osmolality,Calculated 291 (280-300); Potassium 3.1 mEq/L (3.5-5.1); Sodium 140 mEq/L (136-145); Total Protein 6.4 g/dL (6.4-8.9); eGFR For African Americans > 60 (> 60); eGFR For Non-African Americans > 60 (> 60)
[2019-04-06] MEDS: Furosemide 20 MG/2 ML VIAL IVP SCH ×2 (08:26→15:55)
[2019-04-06] MEDS: Aspirin 81 MG TAB.CHEW PO SCH (08:27)
[2019-04-06] MEDS: Carbidopa/Levodopa ER 50/200 TABLET PO SCH ×4 (08:28→21:43)
[2019-04-06] MEDS: Rivastigmine Tartrate (oral) 1.5 MG CAPSULE PO SCH ×2 (08:28→23:13)
--- NOTE | 2019-04-06 08:47 | Cardiology Consult Note ---
<Jeannine Correa N - Last Filed: 04/06/19 11:37> Date of Encounter: 04/06/19 Time of Encounter: 08:47 Assessment and Plan (1) Acute decompensated heart failure Current Visit: Yes Status: Acute Concern for new congestive heart failure based on CXR findings and elevated BNP. Agree with fluid restriction and lasix diuresis as tolerated. Further recommendations pending result of echocardiogram performed on 04/05/2019. (2) New onset atrial fibrillation Current Visit: Yes Status: Acute Unclear etiology. Patient noted to have atrial fibrillation with RVR as demonstrated on EKG obtained on 04/05/2019 at 15:56, with HR 157. That study also demonstrated RR 384, QT 291, and QTc 471. Patient was initially started on a cardizem gtt, which was successful in achieving rate control; cardizem gtt d/c by primary team. She is currently on a heparin gtt, and will need long-term anticoagulation due to CHADS-VASc score of 4 (points for age, gender and history of hypertension). TSH was found to be WNL. Previous echocardiogram in 2017 demonstrated normal EF 60-65%. Repeat echocardiogram pending. Patient will be discussed with Dr. Rhodes; recommendations to follow pending his evaluation. Discussion w patient/family: The assessment and plan as outlined above was discussed with the patient and/or family members who expressed understanding and agreement. All questions were answered. Thank you for involving us in the care of your patient. Please call with any questions. History of Present Illness Consult date: 04/05/19 Requesting physician: Kevin Thompson Consult reason: New afib Chief complaint: Visual hallucinations History of present illness: Ms. Tavera is a 79 year old female with a history of Parkinson's disease and hypertension who presented to the ED for evaluation of visual hallucinations x 2 days. She states that she has been seeing people that are not there, but denies any auditory or tactile hallucinations. She does have home health, and was encouraged to go to the ED for evaluation by those providers. In the ED, patient was found to have a mildly elevated BNP of 188, with CXR findings consistent with congestive heart failure, including cardiomegaly, pulmonary vascular congestion, and possible pulmonary edema. Patient underwent head CT, which demonstrated no acute intracranial abnormalities. Upon returning from CT, patient was noted to be in atrial fibrillation with RVR, and was started on cardizem and heparin gtts. Cardiology consult placed for recommendations regarding new atrial fibrillation and concerns for new CHF. Upon evaluation this morning, patient denies any chest pain, discomfort, pressure, palpitations, orthopnea, or worsening edema. She endorses some subjective shortness of breath while in atrial fibrillation yesterday. She voices no new complaints this morning, and states that she has not had any additional hallucinations since hospital admission yesterday. Prior cardiac testing: * Echocardiogram 09/15/2017: LVEF 60-65%. Normal LV chamber size, wall thickness and function. Mild left ventricular diastolic dysfunction. Normal right ve ntricular structure and function. Mild tricuspid regurgitation. Mild pulmonary hypertension. * Stress echocardiogram 09/16/2017: Pharmacologic stress ECG negative for ischemia at level of heart rate achieved. Gated EF >70%. Perfusion imaging was negative for ischemia or infarct. Past Med Surg Social Fam HX - Past Medical History Medical history: other Additional medical history: parkinson's Psychiatric history: anxiety - Social History Smoking Status: Never smoker Smokeless Tobacco Status: No Alcohol use: none Drug use: none - Family History Father Living Status: Hx Family Cardiac Disorders: Yes Medications and Allergies Pramipexole [Mirapex] 0.5 mg PO TID 09/15/17 [History] Carbidopa/Levodopa [Rytary ER 48.75 mg-195 mg Cap] 3 cap PO QID 04/05/19 [History] Rivastigmine Tartrate (oral) [Exelon] 1.5 mg PO BID 04/05/19 [History] clonazePAM [Klonopin] 0.5 mg PO PRN PRN 04/05/19 [History] Diltiazem CD (24hr) [Cardizem CD] 120 mg PO DAILY 30 Days #30 cap.er.24h 04/07/19 [Rx] Furosemide [Lasix] 20 mg PO DAILY 30 Days #30 tablet 04/07/19 [Rx] Allergy/AdvReac Type Severity Reaction Status Date / Time nitrofurantoin Allergy Rash Verified 04/05/19 18:21 All Systems Review: The remainder of the systems were reviewed and are negative - Constitutional Constitutional: fatigue - Cardiovascular Cardiovascular: dyspnea at rest, dyspnea on exertion, leg edema, no chest pain at rest, no chest pain with exertion, no radiating jaw, neck or arm pain, no palpitations Physical Examination Vital Signs, Last 4 Hours Temp Pulse Resp BP Pulse Ox 04/06/19 06:32 99.8 F H 71 15 124/53 97 General: Conversant, No Apparent Distress HEENT: Atraumatic, Normocephaly, Mucus Membranes Moist Neck: No JVD, Normal carotid pulses Cardiac: Reg Rate and Rhythm, Normal S1 and S2, No Murmur Lungs: Normal Breath Sounds, No Wheeze, Rales, Rhonchi Neuro: Alert and responsive, No focal deficits noted Abdomen: Soft, Non-Tender Skin: No rashes noted on visualized skin Musculoskeletal: No Chest Wall Tenderness Extremities: No Clubbing, No Cyanosis (mild, non-pitting edema in bilateral LE), Normal Pulses, Other Results 04/06/19 06:03 04/06/19 06:03 Lab Results 04/05/19 04/05/19 04/05/19 13:55 13:55 13:55 WBC 11.3 H Hgb 12.8 Hct 38.9 Plt Count 266 INR Sodium 138 Potassium 3.7 Chloride 100 Carbon Dioxide 28 BUN 14 Creatinine 0.89 Glucose 104 Calcium 9.4 Magnesium Total Bilirubin 0.7 AST 13 ALT 3 L Alkaline Phosphatase 79 Troponin I 0.03 B-Natriuretic Peptide TSH 04/05/19 04/05/19 04/05/19 13:55 16:30 22:45 WBC 9.4 Hgb 11.6 Hct 35.5 Plt Count 222 INR Sodium Potassium Chloride Carbon Dioxide BUN Creatinine Glucose Calcium Magnesium 1.8 Total Bilirubin AST ALT Alkaline Phosphatase Troponin I 0.03 B-Natriuretic Peptide 188 H TSH 0.734 04/05/19 04/06/19 04/06/19 22:45 06:03 06:03 WBC 11.6 H Hgb 12.7 Hct 39.4 Plt Count 247 INR 1.0 Sodium 140 Potassium 3.1 L Chloride 97 L Carbon Dioxide 32 H BUN 14 Creatinine 0.62 Glucose 111 H Calcium 9.3 Magnesium Total Bilirubin 0.6 AST 11 L ALT 3 L Alkaline Phosphatase 72 Troponin I B-Natriuretic Peptide TSH Consult Discharge Plan - Plan Additional Instructions: Patient started on Lasix and will need follow-up BMP in 1 week Referrals: Maritza Quintana, [employer] [Primary Care Provider] - (Spoke with the office, they stated for patient to call when they get discharged home. ) Lois Mina MD [Partnered Physician] - 05/18/19 11:30 am (Possible adjustment of Parkinson's meds due to hallucinations) Shun Rhodes MD [Non-Partnered Physician] - (follow up for new onset CHF and A. FIB) Prescriptions: Diltiazem CD (24hr) [Cardizem CD] 120 mg PO DAILY 30 Days #30 cap.er.24h Furosemide [Lasix] 20 mg PO DAILY 30 Days #30 tablet <Shun Rhodes - Last Filed: 04/07/19 16:04> Date of Encounter: 04/06/19 - Attending Attestation I have personally performed a face to face evaluation on this patient. I have reviewed and agree with the documented findings and care plan as documented by the resident. History and Exam by me shows: 79-year-old delightful female with history of Parkinson's disease, frequent fall, admitted for A. fib with RVR and CHF exacerbation. She is currently rate controlled and in sinus rhythm AAOX3 in NAD at the bedside Hemodynamically stable Cardiopulmonary exam revealed S1, S2, no murmur; clear lungs Rhythm reviewed - sinus rhythm, no acute ST T changes Echo preserved EF, no significant valvular heart disease Impression/plan: A. fib with RVR - now in sinus rhythm. Continue Cardizem 120 mg daily. Discussed oral anticoagulation extensively with patient and family. P vernon is not willing to take long-term oral anticoagulation given the risk of bleeding in the setting of being prone to falls. HFpEF - continue Lasix 20 mg daily. Fluid restricted low-salt diet. Daily weighing. Shun Patton MD [facility] Assessment and Plan Discussion w patient/family: The assessment and plan as outlined above was discussed with the patient and/or family members who expressed understanding and agreement. All questions were answered. Thank you for involving us in the care of your patient. Please call with any questions. History of Present Illness History of present illness: Ms. Tavera is a 79 year old female All Systems Review: The remainder of the systems were reviewed and are negative Results 04/07/19 06:14 04/07/19 06:14 Lab Results 04/07/19 04/07/19 06:14 06:14 WBC 10.6 Hgb 12.8 Hct 39.0 Plt Count 268 Sodium 134 L Potassium 4.1 Chloride 96 L Carbon Dioxide 26 BUN 19 Creatinine 0.63 Glucose 112 H Calcium 9.2
[2019-04-06] MEDS ORDERED: *HR* Metoprolol 5 MG/5 ML VIAL IVP PRN (09:34)
--- NOTE | 2019-04-06 09:45 | Internal Med Progress Note ---
Hospitalist Progress Note - Encounter Date of Encounter: 04/06/19 Time of Encounter: 09:23 - Subjective Interval History: Patient seen and examined this morning at bedside. No acute overnight events. Overnight events noted. Patient denies any more hallucination or abnormal movements. Denies any chest pain difficulty breathing abdominal pain nausea v omiting or diarrhea. - Exam Vitals: Temp Pulse Resp BP Pulse Ox 99.8 F H 71 15 124/53 97 04/06/19 06:32 04/06/19 06:32 04/06/19 06:32 04/06/19 06:32 04/06/19 06:32 Exam: General: In no acute distress. Respiratory exam: no accessory muscle use, crackles at b/l base Cardiovascular exam: RRR, +S1, +S2. no murmur, gallop, rubs. GI/Abdominal exam: Non-tender, Non-distended, normal bowel sounds, soft, no peritoneal signs. Extremities exam: no pedal edema, pulses palpable in b/l lower extremities. no calf tenderness Neurological exam: CN II-XII intact, AO X3, no focal deficits. Skin exam: No skin rash - Assessment and Plan (1) GERD (gastroesophageal reflux disease) Current Visit: No Status: Acute (2) Visual hallucinations Current Visit: Yes Status: Acute (3) Atrial fibrillation with RVR Current Visit: Yes Status: Acute (4) Acute decompensated heart failure Current Visit: Yes Status: Acute (5) Parkinson disease Current Visit: Yes Status: Acute - Summary of Assessment and Plan Summary of Assessment and Plan: Assessment Acute Visual Hallucination Afib with RVR Acute CHF, HfpEF DVT prophylaxis Chronic Parkinsons GERD anxiety, depression Plan - Visual hallucinations likely related Parkinson's disease, depression and/or medication side effects. Denies SI/HI. Now resolved. If continues to have will n eed to downtitrate medications with neurology consultation. Hold klonopin. - rate controlled. Now off cardizem for afib. keep iv metoprolol prn. TSH normal. c/w heparin. Cardiology consulted. recommendation appreciated. Replete K and Mg while on diuresis. f/u ECHO - No known history of heart failure. Chest x-ray showed pulmonary edema, lung crackles and elevated BNP of 188. A stress echo two years ago was negative for ischemia and with EF as >70%. A resting echo showed normal LV chamber with mild LV diastolic dysfunction. c/w fluid restriction and lasix 20 BID. Monitor for electrolytes. f/u cardiology recommendations. Internal Medicine: Result - Labs CBC & Chem 7: 04/06/19 06:03 04/06/19 06:03 Labs: Short CBC 04/05/19 04/05/19 04/06/19 Range/Units 13:55 22:45 06:03 WBC 11.3 H 9.4 11.6 H (4.3-11.1) K/mcL Hgb 12.8 11.6 12.7 (11.5-15.4) g/dL Hct 38.9 35.5 39.4 (35.3-44.9) % Plt Count 266 222 247 (140-400) K/mcL Neutrophils # 8.6 9.1 H (1.6-8.9) K/mcL BMP 04/05/19 04/06/19 13:55 06:03 Sodium 138 140 Potassium 3.7 3.1 L Chloride 100 97 L Carbon Dioxide 28 32 H BUN 14 14 Creatinine 0.89 0.62 Glucose 104 111 H Calcium 9.4 9.3 Cardiac Enzymes 04/05/19 04/05/19 Range/Units 13:55 16:30 Troponin I 0.03 0.03 (< 0.04) ng/mL Liver Function 04/05/19 04/06/19 Range/Units 13:55 06:03 Total Bilirubin 0.7 0.6 (0.3-1.0) mg/dL Direct Bilirubin 0.1 (0.0-0.2) mg/dL AST 13 11 L (13-39) Units/L ALT 3 L 3 L (7-52) Units/L Alkaline Phosphatase 79 72 (34-104) Units/L Albumin 4.0 3.8 (3.5-5.7) g/dL Urine 04/05/19 Range/Units 13:45 Urine Color Yellow (Yellow) Urine Clarity Clear (Clear) Urine pH 6.5 (5.0-8.0) pH Units Ur Specific [place] 1.026 H (1.010-1.025) Urine Protein 30 H (Neg-Trace) mg/dL Urine Glucose (UA) Normal (Normal) mg/dL - ABG Interpretation ABG results: PT/INR, D-dimer PT 11.7 Seconds (9.4-12.1) 04/05/19 22:45 - Impressions Impressions Chest X-Ray 04/05/19 13:41 IMPRESSION: 1. Congestive heart failure 2. Hiatal hernia D/ / Tae Sanchez MD / Tae Sanchez MD Interpreting Provider: Tae Sanchez MD Head CT 04/05/19 13:41 IMPRESSION: No acute intracranial abnormality. D/ / Tyesha Rivera / Tyesha Rivera Interpreting Provider: Tyesha Rivera Consult Discharge Plan - Plan Referrals: Maritza Quintana, MATH PROFESSOR [Primary Care Provider] - (1) GERD (gastroesophageal reflux disease) Qualifiers: Esophagitis presence: esophagitis presence not specified Qualified Code(s): K21.9 - Gastro-esophageal reflux disease without esophagitis
[2019-04-06] MEDS: Magnesium Oxide 400 MG TABLET PO SCH ×2 (10:00→21:42)
--- NOTE | 2019-04-06 18:22 | Electrocardiograph Report ---
[place] [facility] Test Date: 2019-04-05 Pat Name: Shivani Tavera Department: EXAM15 Room: 2NE30 Gender: F Tractor Operator Helper: : [id number] Requested By: Smita Mcintosh Order Number: [id number] Reading MD: John [place] Measurements Intervals [place] Rate: 82 P: 61 NE: 171 QRS: 33 QRSD: 85 T: 47 QT: 357 QTc: 417 Interpretive Statements Sinus rhythm Electronically Signed On 04-06-2019 18:20:52 EDT by John Ford
[2019-04-07] MEDS: Heparin 25,000 UNIT/250 ML D5W 25,000 UNIT/250 ML IV.SOLN IVC SCH (05:02)
[2019-04-07 06:47] LABS: Basophils # 0.1 K/mcL (0.0-0.2); Basophils % 0.5 %; Eosinophils # 0.5 K/mcL (0.0-0.6); Eosinophils % 4.2 %; Hemoglobin 12.8 g/dL (11.5-15.4); Immature Granulocytes % 0.6 % (0-4); Lymphocytes # 1.5 K/mcL (0.6-4.6); Lymphocytes % 13.6 %; Mean Corpuscular HGB Conc 32.8 g/dL (31.6-35.5); Mean Corpuscular Hemoglobin 30.5 pg (28.0-33.3); Mean Corpuscular Volume 93.1 fL (83.0-100.0); Mean Platelet Volume 9.2 fL (9.4-12.4); Monocytes # 0.6 K/mcL (0.0-1.3); Monocytes % 5.6 %; Platelet Count 268 K/mcL (140-400); Red Blood Count 4.19 M/mcL (3.82-4.97); Red Cell Distribution Width 12.9 % (11.5-14.5); Segmented Neutrophils % 75.5 %; White Blood Count 10.6 K/mcL (4.3-11.1)
[2019-04-07 07:19] LABS: BUN/Creatinine Ratio 30 (6-26); Blood Urea Nitrogen 19 mg/dL (8-23); Calcium 9.2 mg/dL (8.6-10.3); Carbon Dioxide 26 mEq/L (23-29); Chloride 96 mEq/L (98-107); Glucose 112 mg/dL (70-105); Osmolality,Calculated 281 (280-300); Potassium 4.1 mEq/L (3.5-5.1); Sodium 134 mEq/L (136-145); eGFR For African Americans > 60 (> 60); eGFR For Non-African Americans > 60 (> 60)
--- NOTE | 2019-04-07 08:48 | Internal Med Progress Note ---
Hospitalist Progress Note - Encounter Date of Encounter: 04/07/19 Time of Encounter: 08:48 - Exam Vitals: Temp Pulse Resp BP Pulse Ox 98.4 F 80 16 158/79 96 04/07/19 06:34 04/07/19 06:34 04/07/19 06:34 04/07/19 06:34 04/07/19 03:58 - Assessment and Plan (1) GERD (gastroesophageal reflux disease) Current Visit: No Status: Acute (2) Visual hallucinations Current Visit: Yes Status: Acute (3) Atrial fibrillation with RVR Current Visit: Yes Status: Acute (4) Acute decompensated heart failure Current Visit: Yes Status: Acute (5) Parkinson disease Current Visit: Yes Status: Acute - Time Spent with Patient Total time spent is greater than 50% in coordination of care (as documented) at patient's floor/unit and/or counseling patient: Internal Medicine: Result - Labs CBC & Chem 7: 04/07/19 06:14 04/07/19 06:14 Labs: Short CBC 04/07/19 Range/Units 06:14 WBC 10.6 (4.3-11.1) K/mcL Hgb 12.8 (11.5-15.4) g/dL Hct 39.0 (35.3-44.9) % Plt Count 268 (140-400) K/mcL Neutrophils # 8.0 (1.6-8.9) K/mcL BMP 04/07/19 06:14 Sodium 134 L Potassium 4.1 Chloride 96 L Carbon Dioxide 26 BUN 19 Creatinine 0.63 Glucose 112 H Calcium 9.2 - ABG Interpretation ABG results: PT/INR, D-dimer PT 11.7 Seconds (9.4-12.1) 04/05/19 22:45 - Impressions Impressions Echocardiogram 04/05/19 17:28 Impressions: LVEF 60-65%. Normal LV chamber size and function. Basal sigmoid septum. Mild left ventricular diastolic dysfunction. Normal right ventricular structure and function. Mild tricuspid regurgitation. Mild pulmonary hypertension. Left Ventricular Wall Motion: Rest Echo Findings All wall segments showed normal motion. Findings: Study Quality * Technically sub-optimal due to poor echocardiographic windows. ECG Findings * Normal sinus rhythm. Left Ventricle * LVEF 60-65%. * Normal LV chamber size and function. * Basal sigmoid septum. * Mild left ventricular diastolic dysfunction. Right Ventricle * Normal right ventricular structure and function. Left Atrium * Mildly dilated left atrium. Right Atrium * Normal right atrial size. Interatrial Septum * Interatrial septum not well evaluated. Aortic Valve * Trileaflet aortic valve. * Mildly sclerotic aortic valve leaflets. * No aortic regurgitation. * No aortic stenosis. Mitral Valve * Mild mitral annular calcification * No mitral regurgitation. * No mitral stenosis. Tricuspid Valve * Normal tricuspid valve structure. * Mild tricuspid regurgitation. * Mild pulmonary hypertension. Pulmonic Valve * Pulmonic valve is not well visualized. * Trace pulmonic regurgitation. Aorta * Normally sized aortic root. Pericardium * The pericardium appears normal. IVC * The IVC is not well evaluated. Pulmonary Artery * Pulmonary artery not well visualized. Consult Discharge Plan - Plan Referrals: Maritza Quintana, FORMAL WAITER/WAITRESS [Primary Care Provider] - (1) GERD (gastroesophageal reflux disease) Qualifiers: Esophagitis presence: esophagitis presence not specified Qualified Code(s): K21.9 - Gastro-esophageal reflux disease without esophagitis
--- NOTE | 2019-04-07 09:19 | Cardiology Progress Note ---
<Jeannine Correa N - Last Filed: 04/07/19 11:11> Date of Encounter: 04/07/19 Time of Encounter: 09:18 Assessment and Plan (1) Acute decompensated heart failure Status: Acute Concern for new congestive heart failure based on CXR findings and elevated BNP. Echocardiogram performed on 04/05/2019 demonstrated LVEF 60-65%. Normal LV chamber size and function. Basal sigmoid septum. Mild left ventricular diastolic dysfunction Normal right ventricular structure and function. Mild tricuspid regurgitation. Mild pulmonary hypertension. Patient has responded well to IV lasix, with overall negative fluid balance. Recommend transition from IV to PO lasix in anticipation of hospital discharge in the near future. Continue fluid-restriction/cardiac diet. (2) New onset atrial fibrillation Status: Acute Unclear etiology. TSH WNL. Patient noted to have atrial fibrillation with RVR as demonstrated on EKG obtained on 04/05/2019 at 15:56, with HR 157. That study also demonstrated RR 384, QT 291, and QTc 471. Patient was initially started on a cardizem gtt, which was successful in achieving rate control; cardizem gtt d/c by primary team yesterday. Since that time, patient has remained in NSR. Previous echocardiogram in 2017 demonstrated normal EF 60-65%; repeat echocardiogram obtained yesterday shows no change in ejection fraction. Per discussion this morning with patient, prescription was written for Eliquis in order to fischer-check the monthly cost to the patient (~$24). Patient was accompanied by two family members at the bedside when I returned to the room to provide her with this information, who voiced that due to her frequent falls, they wanted to hold off on long-term anticoagulation at this time. Patient voiced agreement with this; therefore, we will not start eliquis at this time. Patient will need outpatient followup in the cardiology clinic, and anticoagulation can be readdressed if family decides that is something they would like to pursue. (3) Parkinson disease Status: Acute History of Parkinson's disease. Patient currently resides alone, and has had numerous falls related to her gait alterations. Due to increased risk for bleeding if patient falls, family indicates that they would like to forgo starting long-term anticoagulation at this time. Discussion w patient/family: The assessment and plan as outlined above was discussed with the patient and/or family members who expressed understanding and agreement. All questions were answered. Thank you for involving us in the care of your patient. Please call with any questions. Subjective Principal diagnosis: Acute CHF, new afib Interval history: Ms Tavera was seen and evaluated at the bedside this morning. She denies any chest pain, shortness of breath, palpitations, or other complaints. Discussion was held yesterday with the patient and her family regarding the risks/benefits of long-term anticoagulation, particularly with patient's increased fall risk with her underlying Parkinson's disease. Patient states this morning that the hopitalist was going to fischer-check anticoagulant medications. She denies any new concerns at this time. Objective Vital Signs, Last 4 Hours Temp Pulse Resp BP 04/07/19 06:34 98.4 F 80 16 158/79 General: Conversant, No Apparent Distress HEENT: Atraumatic, Normocephaly, Mucus Membranes Moist Neck: No JVD, Normal carotid pulses Cardiac: Reg Rate and Rhythm, Normal S1 and S2, No Murmur Lungs: Normal Breath Sounds, No Wheeze, Rales, Rhonchi Neuro: Alert and responsive, No focal deficits noted Abdomen: Soft, Non-Tender Skin: No rashes noted on visualized skin Musculoskeletal: No Chest Wall Tenderness Extremities: No Clubbing, No Cyanosis, No Edema, Normal Pulses Results 04/07/19 06:14 04/07/19 06:14 Lab Results 04/07/19 04/07/19 06:14 06:14 WBC 10.6 Hgb 12.8 Hct 39.0 Plt Count 268 Sodium 134 L Potassium 4.1 Chloride 96 L Carbon Dioxide 26 BUN 19 Creatinine 0.63 Glucose 112 H Calcium 9.2 Consult Discharge Plan - Plan Instructions: Diltiazem (By mouth), Furosemide (By mouth), Heart Failure (DC), Atrial Fibrillation (DC), Parkinson's Disease (DC) Additional Instructions: Patient started on Lasix and will need follow-up BMP in 1 week Please get a Urinalysis done at your physician f/u appt. Referrals: Maritza Quintana, BUSINESS EDUCATION PROFESSOR [Primary Care Provider] - (Spoke with the office, they stated for patient to call when they get discharged home. ) Lois Mina MD [Partnered Physician] - 05/18/19 11:30 am (Possible adjustment of Parkinson's meds due to hallucinations) Shun Rhodes MD [Non-Partnered Physician] - (follow up for new onset CHF and A. FIB) Prescriptions: Diltiazem CD (24hr) [Cardizem CD] 120 mg PO DAILY 30 Days #30 cap.er.24h Furosemide [Lasix] 20 mg PO DAILY 30 Days #30 tablet <Shun Rhodes - Last Filed: 04/07/19 22:36> Date of Encounter: 04/07/19 Assessment and Plan Discussion w patient/family: The assessment and plan as outlined above was discussed with the patient and/or family members who expressed understanding and agreement. All questions were answered. Thank you for involving us in the care of your patient. Please call with any questions. Results 04/07/19 06:14 04/07/19 06:14 Lab Results 04/07/19 04/07/19 06:14 06:14 WBC 10.6 Hgb 12.8 Hct 39.0 Plt Count 268 Sodium 134 L Potassium 4.1 Chloride 96 L Carbon Dioxide 26 BUN 19 Creatinine 0.63 Glucose 112 H Calcium 9.2 - Attending Attestation I have personally performed a face to face evaluation on this patient. I have reviewed and agree with the documented findings and care plan as documented by the resident. History and Exam by me shows: 79-year-old delightful female with history of Parkinson's disease, frequent fall, admitted for A. fib with RVR and CHF exacerbation. She is currently rate controlled and in sinus rhythm AAOX3 in NAD at the bedside Hemodynamically stable Cardiopulmonary exam revealed S1, S2, no murmur; clear lungs Rhythm reviewed - sinus rhythm, no acute ST T changes Echo preserved EF, no significant valvular heart disease Impression/plan: A. fib with RVR - now in sinus rhythm. Continue Cardizem 120 mg daily. Discussed oral anticoagulation extensively with patient and family. Patient is not willing to take long-term oral anticoagulation given the risk of bleeding in the setting of being prone to falls. HFpEF - continue Lasix 20 mg daily. Fluid restricted low-salt diet. Daily weighing. Abdi, Shun Rhodes MD [facility]
[2019-04-07] MEDS: Aspirin 81 MG TAB.CHEW PO SCH (10:52)
[2019-04-07] MEDS: Magnesium Oxide 400 MG TABLET PO SCH (10:52)
[2019-04-07] MEDS: Rivastigmine Tartrate (oral) 1.5 MG CAPSULE PO SCH (10:52)
[2019-04-07] MEDS: Carbidopa/Levodopa ER 50/200 TABLET PO SCH ×2 (10:53→14:27)
[2019-04-07 11:49] VITALS: BP 111/66
--- NOTE | 2019-04-07 13:35 | Discharge Summary ---
- NOTES TO OUTPATIENT PROVIDER Notes to Outpatient Provider: Patient started on Lasix and will need follow-up BMP in 1 week. Will need follow-up with cardiology as outpatient. Patient will need to follow up with neurology for possible adjustment of her parkinsonian medication given visual hallucinations Orders not resulted at time of discharge: Pending orders 04/05/19 13:45 Culture,Urine [RM] Stat 04/07/19 14:11 Heparin anti-factor XA UFH [COAG] Timed Date of Encounter: 04/07/19 Time of Encounter: 11:23 - Discharge Diagnosis (1) GERD (gastroesophageal reflux disease) Priority: Secondary Status: Acute Qualifiers: Esophagitis presence: esophagitis presence not specified Qualified Code(s): K21.9 - Gastro-esophageal reflux disease without esophagitis (2) Visual hallucinations Priority: Primary Status: Acute (3) Atrial fibrillation with RVR Priority: Primary Status: Acute (4) Acute decompensated heart failure Priority: Primary Status: Acute (5) Parkinson disease Priority: Secondary Status: Acute Hospital course: Ms. Tavera is a 79 year old female with past medical history of Parkinson's disease came to ED with visual hallucinations. Patient was without any suicidal or homicidal ideation. Patient was also noted to have A. fib with RVR and was started on Cardizem drip. Chest x-ray showed signs of pulmonary edema and had mildly elevated BNP. Patient was started on heparin drip and Lasix and cardiology consult was obtained. Echocardiogram showed EF of 60-65 with mild diastolic dysfunction and mild pulmonary hypertension. After discussion with patient as per cardiology with history of falls with her Parkinson's and considering the risk and benefit family and patient decided not to continue anticoagulation. Patient rate was controlled with Cardizem which was stopped on the second day. Her heart rate remained stable and her hallucinations resolved spontaneously without decreasing her Parkinson medications. No further intervention or investigations were needed per cardiology. Patient will need to follow with cardiology within few weeks of discharge. We will discharge patient on Cardizem 120 mg and Lasix 20 by mouth daily. Patient will need follow-up BNP in 1 week. Discharge discussed with: patient, nurse, social work, risk consultant - Time Spent with Patient Total time spent providing and/or coordinating discharge services: Time spent: Greater than 30 minutes (35) - Discharge Medications Prescriptions: New Diltiazem CD (24hr) [Cardizem CD] 120 mg PO DAILY 30 Days #30 cap.er.24h Furosemide [Lasix] 20 mg PO DAILY 30 Days #30 tablet Continued Pramipexole [Mirapex] 0.5 mg PO TID Rivastigmine Tartrate (oral) [Exelon] 1.5 mg PO BID clonazePAM [Klonopin] 0.5 mg PO PRN PRN PRN Reason: Anxiety Carbidopa/Levodopa [Rytary ER 48.75 mg-195 mg Cap] 3 cap PO QID Home Medications: Pramipexole [Mirapex] 0.5 mg PO TID 09/15/17 [History] Carbidopa/Levodopa [Rytary ER 48.75 mg-195 mg Cap] 3 cap PO QID 04/05/19 [History] Rivastigmine Tartrate (oral) [Exelon] 1.5 mg PO BID 04/05/19 [History] clonazePAM [Klonopin] 0.5 mg PO PRN PRN 04/05/19 [History] Diltiazem CD (24hr) [Cardizem CD] 120 mg PO DAILY 30 Days #30 cap.er.24h 04/07/19 [Rx] Furosemide [Lasix] 20 mg PO DAILY 30 Days #30 tablet 04/07/19 [Rx] Allergies/Adverse Reactions: Allergy/AdvReac Type Severity Reaction Status Date / Time nitrofurantoin Allergy Rash Verified 04/05/19 18:21 Date of admission: 04/05/19 18:53 Primary care physician: Maritza Quintana CNP Consults: 04/05/19 18:07 Consult to Cardiology [CONS] Routine Comment: Consulting Provider: Cardiology Lilian Reason for Consult: new onset afib Call Completed: No Discharging clinician: Jamarcus Valerio - Constitutional Vitals: Temp Pulse Resp BP Pulse Ox 98.4 F 85 16 111/66 96 04/07/19 11:45 04/07/19 11:45 04/07/19 11:45 04/07/19 11:45 04/07/19 03:58 Exam: General: In no acute distress. Respiratory exam: no accessory muscle use, crackles at b/l base Cardiovascular exam: RRR, +S1, +S2. no murmur, gallop, rubs. GI/Abdominal exam: Non-tender, Non-distended, normal bowel sounds, soft, no peritoneal signs. Extremities exam: no pedal edema, pulses palpable in b/l lower extremities. no calf tenderness Neurological exam: CN II-XII intact, AO X3, no focal deficits. gait not examined. Some involuntary movements. Skin exam: No skin rash - Patient Status Disposition: Home Health Service Condition: Good - Discharge Instructions Follow Up With: Maritza Quintana, CLIENT RETENTION SPECIALIST [Primary Care Provider] - - Diet and Activity Activity: as per physical therapy
[2019-04-07] MEDS ORDERED: Diltiazem CD (24hr) 120 MG CAPSULE PO SCH (13:45)
--- NOTE | 2019-04-07 14:12 | Physician Discharge Referral ---
Home Health/Hosp Referral Info Transfer to: Home Health - Diagnosis (1) GERD (gastroesophageal reflux disease) Status: Acute (2) Visual hallucinations Status: Acute (3) Atrial fibrillation with RVR Status: Acute (4) Acute decompensated heart failure Status: Acute (5) Parkinson disease Status: Acute - Respiratory Orders Smoking Cessation: Smoking cessation has been advised. For more information, call the [place] Tobacco Quit Line at 2-312-BUMZ-NOW. - Services Needed Following services are medically necessary services: Nursing, Physical Therapy, Occupational Therapy - Transfer Medications Prescriptions: Diltiazem CD (24hr) [Cardizem CD] 120 mg PO DAILY 30 Days #30 cap.er.24h Furosemide [Lasix] 20 mg PO DAILY 30 Days #30 tablet Home Medications: Pramipexole [Mirapex] 0.5 mg PO TID 09/15/17 [History] Carbidopa/Levodopa [Rytary ER 48.75 mg-195 mg Cap] 3 cap PO QID 04/05/19 [History] Rivastigmine Tartrate (oral) [Exelon] 1.5 mg PO BID 04/05/19 [History] clonazePAM [Klonopin] 0.5 mg PO PRN PRN 04/05/19 [History] Diltiazem CD (24hr) [Cardizem CD] 120 mg PO DAILY 30 Days #30 cap.er.24h 04/07/19 [Rx] Furosemide [Lasix] 20 mg PO DAILY 30 Days #30 tablet 04/07/19 [Rx] Allergies/Adverse Reactions: Allergy/AdvReac Type Severity Reaction Status Date / Time nitrofurantoin Allergy Rash Verified 04/05/19 18:21 Certification: Further, I certify that my clinical findings support that this patient is homebound (i.e. absences from home require considerable and taxing effort and are for medical reasons or restoration services or infrequently or short duration when for other reasons) because: Homebound Reason: Patient requires assistance of a person or device to safely leave home Attestation: My signature below is to certify that this patient is under my care and that I, or nurse practitioner, or a physician's residential assistant working with me, has a [id number] encounter with this patient.
--- NOTE | 2019-04-07 15:47 | Electrocardiograph Report ---
[place] [id number] Test Date: 2019-04-05 Pat Name: Shivani Tavera Department: EXAM15 Room: 2NE30 Gender: F Civil Engineering Drafter: : 1940 Requested By: Finesse Nunez Order Number: [id number] Reading MD: Esvin Mendoza Measurements Intervals [place] Rate: 157 P: [place]: QRS: 33 QRSD: 85 T: 25 QT: 291 QTc: 471 Interpretive Statements Atrial fibrillation with rapid V-rate ST depression, probably rate related Electronically Signed On 04-07-2019 15:45:49 EDT by Esvin Mendoza
[2019-04-08] MEDS ORDERED: Furosemide 20 MG TABLET PO SCH (09:00)
== END 2019-04-07 17:49 | disposition home health service (06) | DRG 308 ==
LOC: EMEROOARM 13:07 → 2NENU 13:07 → SUATTDRO 18:53
PROVIDERS: ADMIT Internal Medicine Nephrology; ATTEND Internal Medicine